=== PATIENT | female | born 1975 | race African-American/Black ===

== ENCOUNTER 2020-11-24 12:51 | Emergency (ER) | payer SELFPAY ==
[2020-11-24 13:01] VITALS: BP 125/61; PULSE 86; RESP 20; TEMP 36.6; O2SAT 100
[2020-11-24] MEDS: methylPREDNISolone SOD SUCC 125 MG VIAL IM (14:36)
--- NOTE | 2020-11-24 15:26 | ED.ALLEREA ---
HPI - Allergic Reaction General Chief complaint: Allergic Reaction Stated complaint: allergic reaction Time Seen by Provider: 11/24/20 14:25 Source: patient Mode of arrival: ambulatory Limitations: no limitations History of Present Illness HPI narrative: 45-year-old with no major medical problems here with complaints of rash on the face and upper extremities started couple days ago got worse this morning. Patient states she is itching all over. 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 No history of any seasonal allergies. Denies shortness of breath complaint: allergic reaction Onset (ago): day(s) (1) Exposure: unknown Symptoms: rash and itching Severity: moderate Treatment prior to arrival: none Related Data Allergies Allergy/AdvReac Type Severity Reaction Status Date / Time No Known Allergies Allergy Verified 11/24/20 14:30 Review of Systems Review of Systems: All systems reviewed & are unremarkable except as noted in HPI and below Constitutional: Constitutional: Reports no additional constitutional complaints Eyes: Eyes: Reports no additional eye complaints Cardiovascular: Cardiovascular: Reports no additional cardiovascular complaints Respiratory: Respiratory: Reports no additional respiratory complaints Gastrointestinal: Gastrointestinal: Reports no additional gastrointestinal complaints Musculoskeletal: Musculoskeletal: Reports no additional musculoskeletal complaints Integumentary/Breasts: Skin/Breast: Reports as per HPI PMFSH Social History Social History Gender identity (if verbalized by the patient): Female Exam Narrative: Exam Narrative: GENERAL: Well-appearing, well-nourished, and in no acute distress. HEAD: Normocephalic, atraumatic. EYES: PERRLA and EOMI. ENT: Nares clear . NECK: Supple. CHEST: Clear to auscultation. No respiratory distress. HEART: Regular rate and rhythm. No murmur heard. Normal peripheral pulses.. EXTREMITIES: Normal range of motion. No edema. SKIN: Warm, erythematous rash on the face and both upper extremities. NEURO: No focal deficits. Alert and oriented x3. PSYCH: Normal mood and affect. Course Vital Signs Vital signs: Vital Signs Temperature 36.6 C 11/24/20 13:01 Pulse Rate 86 11/24/20 13:01 Respiratory Rate 20 11/24/20 13:01 Blood Pressure 125/61 11/24/20 13:01 Pulse Oximetry 100 11/24/20 13:01 Temperature 36.6 C 11/24/20 13:01 Pulse Rate 86 11/24/20 13:01 Respiratory Rate 20 11/24/20 13:01 Blood Pressure 125/61 11/24/20 13:01 Pulse Oximetry 100 11/24/20 13:01 Discharge Plan Discharge Clinical Impression: Urticaria Patient Disposition: Home, Self-Care Condition: Stable Instructions: Antibiotic Form, Contact Dermatitis (ED) Additional Instructions: Advised her to take prednisone twice a day as prescribed. Take Benadryl 3 or 4 times a day for itching. Prescriptions: New prednisone 20 mg tablet 20 mg PO BID Qty: 14 RF: 0 hydroxyzine pamoate [Vistaril] 25 mg capsule 25 mg PO TID PRN (Reason: itching) Qty: 30 RF: 0 Follow-up/Referrals: PHYSICIAN,SKIN CARVER [Primary Care Provider] - Mando Cook MD [Physician] - Time of Disposition: 15:34
== END 2020-11-24 15:44 | disposition home or self-care (01) ==
PROVIDERS: Emergency Provider Family Medicine
DX: L50.9 Urticaria, unspecified (principal)
CPT/HCPCS: 96372; 99283; J2930